=== PATIENT | male | born 1960 | race Caucasian/White ===

== ENCOUNTER 2018-10-30 07:51 | Day surgery (SDC) | payer MEDICAID ==
[~2018-10-30] VITALS: Ht 182.9 cm; Wt 71.3 kg
[2018-10-30] VITALS (12 sets, daily range): BP systolic 138–159; BP diastolic 74–112
[~2018-10-30 07:51] MED LIST: NO HOME MEDS; albuterol 2.5 MG/3 ML nebule NEB ONE; albuterol 2.5 MG/3 ML nebule NEB PRN; cefazolin/dext.iso 2gm/100 ML IV ONE; famotidine 20mg tablet PO ONE; ringers solution, lacted 1,000 ML IV SCH
[2018-10-30 09:02] LABS: ALANINE AMINOTRANSFERASE 25 U/L (12-78); ALBUMIN 3.6 G/DL (3.4-5.0); ALBUMIN/GLOBULIN RATIO 1.1 (1.1-1.5); ALKALINE PHOSPHATASE 90 IU/L (46-116); ANION GAP 4 (8-16); ASPARTATE AMINO TRANSFERASE 15 U/L (10-37); BILIRUBIN,TOTAL 0.2 MG/DL (0.1-1.0); BLOOD UREA NITROGEN 29 MG/DL (7-18); BUN/CREATININE RATIO 27.9 (5.4-32.0); CALCIUM 8.4 MG/DL (8.5-10.1); CHLORIDE 106 MMOL/L (99-107); CREATININE 1.04 MG/DL (0.60-1.10); GLUCOSE 92 MG/DL (70-104); POTASSIUM 4.4 MMOL/L (3.5-5.1); SODIUM 137 MMOL/L (135-145); TOTAL CARBON DIOXIDE 26.7 MMOL/L (24-32); TOTAL PROTEIN 6.8 G/DL (6.4-8.2); eGFR 74 ML/MIN
[2018-10-30 09:06] LABS: BASOPHILS # (AUTO) 0.1 X10'3 (0-0.2); BASOPHILS % (AUTO) 1.1 % (0-1); EOSINOPHILS # (AUTO) 0.1 X10'3 (0-0.9); EOSINOPHILS % (AUTO) 1.7 % (0-6); HEMATOCRIT 41.3 % (42.0-52.0); HEMOGLOBIN 13.7 g/dl (14.0-17.9); LYMPHOCYTES # (AUTO) 1.8 X10'3 (1.1-4.8); LYMPHOCYTES % (AUTO) 23.2 % (21-51); MEAN CORPUSCULAR HEMOGLOBIN 29.9 PG (27.0-31.0); MEAN CORPUSCULAR HGB CONC 33.3 g/dL (33.0-36.5); MEAN PLATELET VOLUME 7.9 FL (7.4-10.4); MONOCYTES # (AUTO) 0.7 X10'3 (0-0.9); MONOCYTES % (AUTO) 8.7 % (2-12); NEUTROPHILS # (AUTO) 5.2 X10'3 (1.8-7.7); NEUTROPHILS % (AUTO) 65.3 % (42-75); PLATELET COUNT 313 X10'3 (140-440); RED BLOOD COUNT 4.59 X10'6 (4.70-6.10); RED CELL DISTRIBUTION WIDTH 15.3 % (11.5-14.5)
[2018-10-30] MEDS ORDERED: ceFAZolin 1000mg inj ONE (11:08)
[2018-10-30] MEDS ORDERED: BUPIVAcaine/PF 2.5mg/ml (0.25%) 10ml vial ONE (11:08)
[2018-10-30 11:53] LABS: CLARITY,URINE CLEAR (Clear); COLOR,URINE YELLOW (Yellow); GLUCOSE, URINE NEGATIVE (Neg); KETONES,URINE NEGATIVE (Neg); LEUKOCYTE ESTERASE ,URINE TRACE (Neg); NITRITES, URINE NEGATIVE (Neg); OCCULT BLOOD,URINE TRACE-INTACT (Neg); PH,URINE 5.5 (4.8-8.0); PROTEIN,URINE NEGATIVE (Neg); UROBILINOGEN,URINE 0.2 E.U/dL (0.2-1.0)
[2018-10-30 11:59] LABS: UA COLLECTION TYPE CLN CATCH MIDSTREAM
[2018-10-30 12:02] LABS: BACTERIA,URINE FEW /HPF (Neg); MUCUS STRANDS NONE SEEN /LPF (Neg); RBC,URINE 0-2 /HPF (0-2); SQUAMOUS EPITHELIAL CELL,UR FEW /LPF (FEW); WBC,URINE 0-4 /HPF (0-4)
[2018-10-30] MEDS ORDERED: sevoflurane 250ml liquid IH ONE (12:08)
[2018-10-30] MEDS ORDERED: fentaNYL /PF 50mcg/ml 5ml ampule ONE (12:12)
[2018-10-30] MEDS ORDERED: midazolam 2 mg/2 ml injection ONE (12:12)
[2018-10-30] MEDS ORDERED: propofol inj 20 ML IV ONE (12:12)
[2018-10-30] MEDS ORDERED: rocuronium 10mg/ml inj IV ONE (12:13)
[2018-10-30] MEDS ORDERED: neostigmine methylsulfate 1 MG/ML 10ml vial ONE (12:44)
[2018-10-30] MEDS ORDERED: glycopyrrolate 0.2mg/ml inj ONE (12:45)
[2018-10-30] MEDS ORDERED: ringers solution, lacted 1,000 ML IV SCH (13:12)
[2018-10-30] MEDS ORDERED: ketorolac trometh. 30mg/ml inj. IV ONE (13:15)
[2018-10-30] MEDS ORDERED: proCHLORperazine 10 MG/2 ml inj IV PRN (13:15)
[2018-10-30] MEDS ORDERED: meperidine/PF 25mg/ml syringe IV PRN ×2 (13:15)
[2018-10-30] MEDS ORDERED: morphine 4 MG/ML inj SYRINge IV PRN ×2 (13:15)
[2018-10-30] MEDS ORDERED: hydrALAZINE 20mg/ml inj. IV PRN (13:15)
[2018-10-30] MEDS ORDERED: ondansetron/PF 4mg/2ml inj IV PRN (13:15)
[2018-10-30] MEDS ORDERED: acetaminophen 1,000mg/100ml IV 100 ML IV PRN (13:15)
--- NOTE | 2018-10-30 13:20 | NUR ---
Received from OR via BED , accompanied by Anesthesiologist DR BURCH and report given by Anesthesiolgist, PATIENT WAKING UP, DENIES PAIN, V/S WNL, CSM INTACT, ABDOMEN DRESSING CDI WITH 2 BANDAIDS CDI, SCD ON, 20G PIV TO RUE,
--- NOTE | 2018-10-30 14:40 | NUR ---
PATIENT A&OX4, DENIES PAIN, V/S WNL, CSM INTACT, ABDOMEN DRESSING CDI WITH 2 BANDAIDS CDI, SCD OFF, 20G PIV TO RUE D/C , . I HAVE REVIEWED D/C INSTRUCTIONS WITH PATIENT AND FAMILY AND THEY HAVE VERBALIZED UNDERSTANDING. LASHANDA HAS DELIVERED PATIENTS MEDS AND PATIENT D/C HOME WITH ALL BELONGINGS AND FAMILY GAVE TRANSPORT HOME.
== END 2018-10-30 14:40 | disposition home or self-care (01) ==
LOC: PAS 07:51
PROVIDERS: ATTEND Surgery
PROC: 0YU54JZ Supplement Right Inguinal Region with Synthetic Substitute, Percutaneous Endoscopic Approach (ICD-10-PCS; principal; 2018-10-30 12:08)
DX: K40.90 Unilateral inguinal hernia, without obstruction or gangrene, not specified as recurrent (principal); F17.210 Nicotine dependence, cigarettes, uncomplicated; R10.31 Right lower quadrant pain
CPT/HCPCS: 36415; 49650; 80053; 81001; 85025; 87088; 93005; A6258; C1781; J0690; J2250; J2704; J2710; J3010; J3490; J7120; A4315; C1727